=== PATIENT | male | born 1940 | race Caucasian/White ===

== ENCOUNTER 2017-09-14 05:31 | Outpatient (CLI) | payer MEDICARE, OTHER ==
[~2017-09-14] VITALS: Ht 175.3 cm; Wt 99.3 kg
[~2017-09-14 05:31] MED LIST: AMLO10TA82 PO; ASCO500T20 PO; ASP81TEC PO; CALC-787 PO; CHOL10003 PO; FISH1CAP15 PO; HYDR1TAB86 PO; LOSA50TA6 PO; SIMV20TA3 PO; TRIA1TAB3 PO
[2017-09-14] MEDS ORDERED: ASCO10006 PO (09:06)
[2017-09-14] MEDS ORDERED: ASPI-999 PO (09:06)
[2017-09-14] MEDS ORDERED: LOSA100T28 PO (09:06)
[2017-09-14] MEDS ORDERED: TRIA1CAP4 PO (09:06)
[2017-09-14] MEDS ORDERED: CALC-927 PO (09:06)
[2017-09-14] MEDS ORDERED: CHOL2000 PO (09:06)
[2017-09-14] MEDS ORDERED: FISH1CAP15 PO (09:06)
[2017-09-14] MEDS ORDERED: SIMV20TA3 PO (09:06)
[2017-09-14] MEDS ORDERED: AMLO10TA2 PO (09:06)
== END 2017-09-14 09:02 ==
LOC: PREOP 05:31
PROVIDERS: ATTEND Surgery
DX: Z01.818 Encounter for other preprocedural examination (principal); Z12.11 Encounter for screening for malignant neoplasm of colon

== ENCOUNTER 2017-09-21 08:40 | Day surgery (SDC) | payer MEDICARE, OTHER ==
[~2017-09-21] VITALS: Ht 175.3 cm; Wt 99.3 kg
[~2017-09-21 08:40] MED LIST changes: +AMLO10TA2 PO; +ASCO10006 PO; +ASPI-999 PO; +CALC-927 PO; +CHOL2000 PO; +LOSA100T28 PO; +TRIA1CAP4 PO
[2017-09-21] MEDS ORDERED: NS IV 500 ML 500 ML IV PRN (08:51)
[2017-09-21] MEDS ORDERED: LIDOCAINE JELLY 2% (XYLOCAINE) 5 ML TUBE MM PRN (09:00)
[2017-09-21 09:09] VITALS: BP 147/73
[2017-09-21] MEDS ORDERED: fentaNYL INJECTION 100 MCG/2 ML AMP ONE ×2 (09:55→10:27)
[2017-09-21] MEDS ORDERED: LIDOCAINE JELLY 2% (XYLOCAINE) 5 ML TUBE ONE (09:55)
[2017-09-21] MEDS ORDERED: MIDAZOLAM 2 MG/2 ML (VERSED) VIAL ONE ×4 (09:56)
--- NOTE | 2017-09-21 10:08 | Conscious Sedation/ASA ---
Conscious Sedation Pre-Proced Time Reviewed: 09:30 ASA Class: 2 Airway Mallampati Classification: ([place] appropriate class) I. II. III, IV Lungs Heart ASA score ASA 1: a normal healthy patient ASA 2: a patient with a mild systemic disease (mid diabetes, controlled hypertension, obesity ASA 3: a patient with a severe systemic disease that limits activity (angina , COPD, prior Myocardial infarction) ASA 4: a patient with an incapacitating disease that is a constant threat to life (CHF, renal failure) ASA 5: a moribund patient not expected to survive 24 hrs. (ruptured aneurysm) ASA 6: a declared brain patient whose organs are being harvested. For emergent operations, add the letter E after the classification Grade 2 Sedation Plan: Analgesia, Amnesia, Plan communicated to team members, Discussed options with patient/fam, Discussed risks with patient/fam Note The patient is an appropriate candidate to undergo the planned procedure, sedation, and anesthesia. The patient immediately re-assessed prior to indication. ALISHA MARTIN MD Sep 21, 2017 10:08 am
--- NOTE | 2017-09-21 10:09 | Progress Note-Pre Operative ---
Pre-Operative Progress Note H&P Reviewed The H&P was reviewed, patient examined and no changes noted. Date Seen by Provider: Sep 21, 2017 Time Seen by Provider: :30 Date H&P Reviewed: Sep 21, 2017 Time H&P Reviewed: :30 Pre-Operative Diagnosis: screening colonoscopy ALISHA MARTIN MD Sep 21, 2017 10:09 am
[2017-09-21] MEDS: MIDAZOLAM 2 MG/2 ML (VERSED) VIAL IVP PRN ×4 (10:10→10:29)
[2017-09-21] MEDS: fentaNYL INJECTION 100 MCG/2 ML AMP IVP PRN ×4 (10:11→10:28)
[2017-09-21] MEDS ORDERED: ONDANSETRON 4 MG/2 ML (SDV) Z0FRAN IV PRN (10:15)
[2017-09-21] MEDS ORDERED: HYDROcodone/APAP 5 MG/325 MG (LORTAB) TAB PO PRN (10:15)
[2017-09-21] MEDS ORDERED: ACETAMINOPHEN 325 MG TABLET/CAPLET (TYLENOL) PO PRN (10:15)
[2017-09-21] MEDS ORDERED: morphine INJ 10 MG/ML 1ML (SYR OR VIAL) IV PRN (10:15)
--- NOTE | 2017-09-21 10:48 | Progress Note-Post Operative ---
Post-Operative Progess Note Surgeon (s)/Publication Director (s) Surgeon ALISHA MARTIN MD Publication Director: none Pre-Operative Diagnosis screening colonoscopy Post-Operative Diagnosis polyp proximal rectum(4mm), mild sigmoid diverticulosis. Procedure & Operative Findings Date of Procedure 09/21/17 Procedure Performed/Findings Colonoscopy with bx. Anesthesia Type CS Estimated Blood Loss Estimated blood loss (mL): minimal Specimens/Packing Specimens Removed rectal polyp ALISHA MARTIN MD Sep 21, 2017 10:48 am
--- NOTE | 2017-09-21 10:49 | Discharge Inst-Surgical ---
D/C Lap Instructions-MAIRO Follow Up 3-10 years, will call Activity as tolerated High Fiber Diet 25g or more per day Avoid Alcohol, Caffeine, Spicy [place] and Acid foods. Drink 64 fluid oz or more of fluids per day. Symptoms to Report: Fever over 101 degree F, Nausea/Vomiting If any problems/questions: Contact your physician or go to Emergency Room ALISHA MARTIN MD Sep 21, 2017 10:49 am
[2017-09-21 11:00] VITALS: BP 114/62
[2017-09-21 11:25] VITALS: BP 100/60
[2017-09-21 11:32] VITALS: BP 100/60
--- NOTE | 2017-09-21 19:09 | OPERATIVE REPORT ---
DATE OF SERVICE: 09/21/2017 ATTENDING PRIMARY CARE PHYSICIAN: Dr. Jordan. PREOPERATIVE DIAGNOSIS: Screening colonoscopy. POSTOPERATIVE DIAGNOSIS: Small sessile polyp of the rectum approximately 4 mm in size, mild sigmoid diverticulosis. PROCEDURE: EGD with biopsy. SURGEON: Dr. Ferrell. ANESTHESIA: Conscious sedation. ESTIMATED BLOOD LOSS: Minimal. FINDINGS: No significant hemorrhoids identified. Prostate gland was palpable and appeared normal. There was a small sessile polyp of the rectum approximately 4 mm in size. There was mild sigmoid diverticulosis. The remainder of the colon was normal. DISPOSITION: The patient tolerated the procedure well. The patient is a 76-year-old male in need of a followup colonoscopy. This gentleman has had two colonoscopies in the past. He reports that his first one was done at around age 51 and a polyp was identified, biopsied and found to be benign. A second colonoscopy was done and states that that was normal. He states for the most part he is doing well, tolerating regular diet and having normal bowel movements. He does not report any red blood per rectum nor any dark tarry stools. The patient was brought to the endoscopy suite, laid in the left lateral decubitus position. After adequate IV pain and sedating medications and conscious sedation anesthesia, a digital rectal examination was performed. No significant hemorrhoids identified. Normal sphincter tone was felt and there were no palpable masses. Prostate gland was palpable and appeared normal. The endoscope was then intubated to the anus and rectum and gently insufflated. The endoscope was then advanced to the valves of [place] of the rectum and of the proximal rectum, a small sessile polyp identified approximately 4 mm in largest diameter. This was biopsied and destroyed using forceps and electrocautery with visualization of good hemostasis. The endoscope was then advanced to the sigmoid colon where very mild or early sigmoid diverticulosis identified. The endoscope was then advanced to the remainder of the descending, transverse, and ascending colon to the cecum. These segments were normal. No other lesions identified. The endoscope was then slowly withdrawn while taking a second look and suctioning of residual air with no additional findings. The patient tolerated the procedure well. We will have him continue with medical management with a high fiber diet with at least 30 grams of fiber per day as well as at least 64 fluid ounces of water daily to promote soft stools on a daily basis. We will await the biopsy results of the polyp. If this is a hyperplastic polyp or only a tubular adenoma, he may again wait 10 years for his next colonoscopy. However, there was a villous component pathologically, we will then recommend a followup in 3 years. Job ID: [id number] DocumentID: [id number] Dictated Date: 09/21/2017 10:43:51 Sizing Sprayer Date: 09/21/2017 19:09:19 Dictated By: ALISHA FERRELL MD MTDD
--- OUTSIDE RECORDS SUMMARY | 2017-09-22 18:21 | XMS REPORT | Clinical Summary ---
Author Author User, SARY Organization Formerly [facility] [place] Address Unknown Phone Unavailable Allergies, Adverse Reactions, Alerts Allergy Name Reaction Description Start Date Severity Status Provider CODEINE Gastrointestinal problems, e.g., nausea, vomiting, diarrhea Critical Active Melonie Jordan Conditions or Problems Problem Name Problem Code Onset Date Status Entry Date Provider Comment Standard Description Annotate HYPERCHOLESTEROLEMIA 272.0 Active Melonie Jordan Pure hypercholesterolemia HYPERTENSION, BENIGN ESSENTIAL, SEVERE 401.1 Active Melonie Jordan Benign essential hypertension OSTEOARTHRITIS 715.90 Active Melonie Jordan Osteoarthrosis, unspecified whether generalized or localized, involving unspecified site SHOULDER PAIN 719.41 Resolved Melonie Jordan Pain in joint involving shoulder region KNEE PAIN 719.46 Active Melonie Jordan Pain in joint involving lower leg SKIN LESION 709.9 Resolved Melonie Jordan Unspecified disorder of skin and subcutaneous tissue left ACW VACCINE AGAINST STREPTOCOCCUS PNEUMONIAE V03.82 Resolved Melonie Jordan Need for prophylactic vaccination against Streptococcus pneumoniae [pneumococcus] VACCINE AGAINST TETANUS TOXOID V03.7 Resolved Melonie Jordan Need for prophylactic vaccination with tetanus toxoid alone HYPERGLYCEMIA, MILD 790.6 Active Melonie Jordan Other abnormal blood chemistry HYPERGLYCEMIA, MILD 790.6 Resolved Melonie Jordan Other abnormal blood chemistry UNSPECIFIED VITAMIN D DEFICIENCY 268.9 Active Melonie Jordan Unspecified vitamin D deficiency BPH 600.0 Active Melonie Jordan Hypertrophy (benign) of prostate URINARY FREQUENCY 788.41 Resolved Melonie Jordan Urinary frequency ERECTILE DYSFUNCTION, 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 Melonie Jordan Impotence of organic origin HEALTH SCREENING V70.0 Resolved Melonie Jordan Routine general medical examination at a health care facility TORTICOLLIS 723.5 Resolved Melonie Jordan Torticollis, unspecified LIPOMAS, MULTIPLE 214.9 Resolved Melonie Jordan Lipoma, unspecified site Medication List Medication Instructions Start Date Stop Date Generic Name NDC Status Provider Patient Instruction COZAAR 100 MG TAB 1 PO daily LOSARTAN POTASSIUM 20283559159 Active Melonie Jordan VIAGRA 100 MG TABS 1 PO as directed SILDENAFIL CITRATE 25367149354 No Longer Active Melonie Jordan VALIUM 2 MG TAB 1 PO TID Muscle Spasm DIAZEPAM 69475844768 No Longer Active Melonie Jordan PREDNISONE 20 MG TAB 2 pills at once for 3 days then 1 pill daily for 3 days PREDNISONE 77120973738 No Longer Active Melonie Jordan VITAMIN D 1000 UNIT TABS 1 PO Daily CHOLECALCIFEROL 30611492594 Active Melonie Jordan ZOCOR 20 MG TAB 1 PO daily SIMVASTATIN 89019251974 Active Melonie Jordan NORVASC 10 MG TAB 1 PO QD AMLODIPINE BESYLATE 72240391244 Active Melonie Jordan FISH OIL 1000 MG CAPS 2 PO daily OMEGA-3 FATTY ACIDS 22760168496 Active Melonie Jordan ASPIRIN 81 MG TAB 1 PO daily ASPIRIN 57770031012 Active Melonieyoko Jordan CADUET 10-20 MG TABS 1 PO daily AMLODIPINE-ATORVASTATIN 64618706966 No Longer Active Joie Berrios ADVIL 200 MG TAB 2 PO prn IBUPROFEN 49768115797 No Longer Active Melonie Riggins Jordan VITAMIN E 100 IU CAP 1 daily VITAMIN E 03245998706 No Longer Active Melonieyoko Riggins Jordan BENICAR 20 MG TABS 1 PO QD OLMESARTAN MEDOXOMIL 62687487753 No Longer Active Melonie Vaishnavi Nikki CADUET 10/20 1 PO daily CADUET 10 No Longer Active Melonieyoko Rehmane Nikki VITAMIN C 500 MG CHEW TAB 2 PO QD ASCORBIC ACID 14028552167 Active Melonie Vaishnavi Nikki CALTRATE 600 PLUS-VIT D 600-200 MG-IU TABS 1 PO QD CALCIUM-VITAMIN D Active Melonie Vaishnavi Nikki CELEBREX 200 MG CAPS 1 PO QD CELECOXIB 98086547965 No Longer Active Melonie Vaishnavi Nikki CADUET 5/20 (NORVASC 5/LIPITOR 20) 1 PO QD CADUET 5/20 ( NORVASC 5/LIPITOR 20) No Longer Active Melonie Riggins Nikki TRIAMTERENE-HCTZ 37.5-25 MG TABS 1 po daily TRIAMTERENE-HCTZ 00418758149 Active Melonieyoko Rehmane Nikki Immunizations Vaccine Administration Date Value Standard Description Influenza vaccine given Done influenza virus vaccine, unspecified formulation Influenza vaccine given Done influenza virus vaccine, unspecified formulation Influenza vaccine given Done influenza virus vaccine, unspecified formulation Vital Signs Date Name Value Unit Range Description blood pressure, diastolic - 8462-4 80 mm[Hg] BP benavides blood pressure, systolic - 8480-6 160 mm[Hg] BP sys pulse rate E&M - 8867-4 54 /min Heart rate respiratory rate E&M - 9279-1 14 /min Resp rate temperature E&M 98.6 [degF] Body temperature weight E&M - 3141-9 220 [lb_av] Weight Measured Diagnostic Results Date Name Value Unit Range Description Clinical Lists Update: CBC,CMP,FLP,TSH,HgA1c - Chemistry Estimated Glomerular Filtration Rate (calc) >60 mL/min/1.73m2 albumin, serum 4.3 g/dL cholesterol/HDL ratio, serum, percent 2.52 anion gap, serum 6 sodium, serum 138 mmol/L triglyceride, serum, fasting 96 mg/dL bilirubin, serum, total 0.8 mg/dL alanine aminotransferase (SGPT), serum 19 U/L aspartate aminotransferase (SGOT), serum 23 U/L protein, total, serum 6.8 g/dL potassium, serum 4.4 mmol/L LDL cholesterol, serum 75 mg/dL thyroid stimulating hormone, serum 1.819 u[iU]/mL hemoglobin A1C, blood, as % of total hemoglobin 5.5 % HDL cholesterol, serum 62 mg/dL creatinine, serum 1.16 mg/dL carbon dioxide, venous blood 28 mmol/L cholesterol, serum 156 mg/dL chloride, serum 104 mmol/L calcium, serum 10.0 mg/dL urea nitrogen, blood 24 mg/dL alkaline phosphatase, serum 70 U/L glucose, plasma fasting 95 mg/dL Clinical Lists Update: CBC,CMP,FLP,TSH,HgA1c - Hematology red blood cell distribution width 13.8 % mean corpuscular volume, RBC 88.9 fL leukocyte count, blood 6.8 10*3/mm3 erythrocyte (RBC) count 4.95 10*6/mm3 platelet count 210 10*3/mm3 hemoglobin, blood 14.9 g/dL hematocrit, blood 44.0 % Lab Report: A1C HPLC - Chemistry hemoglobin A1C, blood, as % of total hemoglobin 5.5 % 4.0-5.6 Lab Report: CBC - Chemistry mean corpuscular hemoglobin concentration, rbc 33.9 g/dL 31.6- 35.5 basophils, absolute, manual 0.07 10E9/L {Cells}/uL 0.00-0.20 eosinophils, absolute, manual 0.35 10E9/L {Cells}/uL 0.00-0.45 monocytes, absolute, manual 0.63 10E9/L {Cells}/uL 0.20-1.00 lymphocytes, absolute, manual 1.88 10E9/L {Cells}/uL 1.00-4.00 polymorphonuclear neutrophils, absolute, manual 3.88 10E9/L { Cells}/uL 1.80-7.80 Lab Report: CBC - Hematology basophils as percent of blood leukocytes, automated count 1.0 % neutrophil count, CSF 57.1 % hematocrit, blood 44.0 % 38.3-51.2 platelet count 210 663-304 1231/11/05 lymphocytes as percent of blood leukocytes, manual count 27.6 % mean platelet volume 9.2 fL 9.5-12.8 monocytes as percent of blood leukocytes 9.2 % mean corpuscular hemoglobin, RBC 30.1 pg 27.6-33.8 eosinophils as percent of blood leukocytes 5.1 % mean corpuscular volume, RBC 88.9 fL 83.7-99.8 hemoglobin, blood 14.9 g/dL 12.5-17.3 Lab Report: CHEM 14 - Chemistry bilirubin, serum, total 0.8 mg/dL 0.1-1.3 protein total, urine 7.2 GM/DL 6.4-8.1 alanine aminotransferase (SGPT), serum 19 U/L 0-40 alanine aminotransferase (SGPT), serum 17 U/L 0-40 aspartate aminotransferase (SGOT), serum 23 U/L 0-40 aspartate aminotransferase (SGOT), serum 20 U/L 0-40 potassium, serum 4.4 mmol/L 3.5-5.5 potassium, serum 4.5 mmol/L 3.5-5.5 blood glucose, random 107 mg/dL 70-100 protein total, urine 6.8 GM/DL 6.4-8.1 alkaline phosphatase, serum 70 U/L 43-123 alkaline phosphatase, serum 60 U/L 43-123 albumin, serum 4.3 g/dL 3.9-4.9 albumin, serum 4.4 g/dL 3.9-4.9 calcium, serum 10.0 mg/dL 8.5-10.5 calcium, serum 9.9 mg/dL 8.5-10.5 urea nitrogen, blood 24 mg/dL 5-26 sodium, serum 138 mmol/L 676-841 7299/11/05 sodium, serum 138 mmol/L 478-380 9919/11/05 blood glucose, random 95 mg/dL 70-100 urea nitrogen, blood 22 mg/dL 5-26 chloride, blood 105 mmol/L 96-108 chloride, blood 104 mmol/L 96-108 bicarbonate, serum 27 mmol/L 18-30 bicarbonate, serum 28 mmol/L 18-30 bilirubin, serum, total 0.8 mg/dL 0.1-1.3 Lab Report: CHEM 14 - Lab CREATININE 1.16 0.50-1.70 CREATININE 1.42 0.50-1.70 Lab Report: LIPID GRP - Chemistry cholesterol, serum 156 mg/dL 370-800 6457/05/11 HDL cholesterol, serum 75 mg/dL 40-125 HDL cholesterol, serum 62 mg/dL 40-125 triglyceride, serum, random 80 mg/dL 30-150 triglyceride, serum, random 96 mg/dL 30-150 cholesterol, serum 159 mg/dL 100-200 Lab Report: TSH - Chemistry thyroid stimulating hormone, serum 1.819 u[iU]/mL 0.300-5.000 Encounters Code Encounter Date Provider Facility CPT-29306 Ofc Vst, Est Level IV 10:43:21 ORTHODONTIC TECHNICIAN ASSISTANT Melonie Jordan DO, FACP CPT-97893 Ofc Vst, Est Level III 16:32:35 CDT Melonie Jordan DO, FACP CPT-49772 Ofc Vst, Est Level III 16:29:14 CDT Melonie Jordan DO, FACP CPT-83367 Ofc Vst, Est Level III 15:20:57 CDT Melonieyoko Jordan [facility] CPT-48078 Ofc Vst, Est Level IV 10:25:21 CDT Melonie Jordan DO, FACP CPT-70960 Ofc Vst, Est Level IV 10:36:19 CDT Melonie Jordan DO, FACP CPT-52668 Ofc Vst, Est Level IV 10:36:55 CDT Melonie Jordan DO, FACP CPT-39165 Ofc Vst, Est Level IV 10:11:24 CDT Melonie Jordan DO, FACP CPT-52818 Ofc Vst, Est Level IV 12:30:42 CDT Melonie Jordan DO, FACP CPT-52341 Ofc Vst, Est Level IV 09:50:04 ORTHODONTIC TECHNICIAN ASSISTANT Melonie Jordan DO, FACP CPT-38190 Ofc Vst, Est Level IV 15:56:18 CDT Melonie Vaishnavi Jordan Melonie Kathy Nikki, DO, FACP CPT-30868 Ofc Vst, Est Level IV 10:11:12 CDT Melonie Vaishnavi [place] Melonieyoko Jordan, DO, FACP CPT-04782 Ofc Vst, Est Level IV 13:52:22 CDT Melonie Vaishnavi [place] Melonie Chavez Nikki, DO, FACP CPT-51708 Ofc Vst, Est Level IV 09:49:54 CDT Melonie Vaishnavi Nikki Melonieyoko Jordan, DO, FACP CPT-00637 Ofc Vst, Est Level IV 09:55:50 ORTHODONTIC TECHNICIAN ASSISTANT Melonieyoko Riggins Nikki Jordan, DO, FACP CPT-30770 Ofc Vst, Est Level IV 10:14:46 CDT Melonie Vaishnavi [place] Melonie Kathy Nikki, DO, FACP CPT-39650 Ofc Vst, Est Level III 09:58:45 CDT Melonie Vaishnavi [facility] [place] CPT-16726 Ofc Vst, Est Level IV 10:29:39 ORTHODONTIC TECHNICIAN ASSISTANT Melonie Jordan [facility] [place] CPT-59983 Ofc Vst, Est Level IV 11:06:57 CDT Melonie Jordan [facility] [place] CPT-44547 Ofc Vst, Est Level IV 09:51:33 ORTHODONTIC TECHNICIAN ASSISTANT Melonie Jordan [facility] [place] CPT-06270 Ofc Vst, Est Level IV 10:15:25 ORTHODONTIC TECHNICIAN ASSISTANT Melonie Jordan [facility] [place] CPT-34109 Ofc Vst, Est Level IV 10:00:20 CDT Melonie Jordan [facility] [place] CPT-64116 Ofc Vst, Est Level IV 09:17:27 CDT Melonie Vaishnavi Jordan [facility] [place] CPT-75147 Ofc Vst, Est Level IV 17:14:46 ORTHODONTIC TECHNICIAN ASSISTANT Melonie Jordan [facility] [place] CPT-70926 Ofc Vst, Est Level IV 18:27:58 ORTHODONTIC TECHNICIAN ASSISTANT Melonie Jordan [facility] [place] CPT-71182 Ofc Vst, Est Level III 18:49:34 ORTHODONTIC TECHNICIAN ASSISTANT Melonie Jordan [facility] [place] CPT-08079 Ofc Vst, New Level III 17:44:25 ORTHODONTIC TECHNICIAN ASSISTANT Melonie Jordan [facility] [place] Procedures Code Procedure Name Date Entry Date Standard Description CPT-G0439 Medicare Annual Wellness Visit 18:56:44 CDT CPT-G8445 E-Prescribing Not sent due to no medication given 16:32: 35 CDT CPT-G8445 E-Prescribing Not sent due to no medication given 10:37: 54 CDT CPT-G0439 Medicare Annual Wellness Visit 10:37:54 CDT CPT-21504 Preventive, Est, (65+) 10:36:34 CDT CPT-56594 Tetanus vaccine, adsorbed, intramuscular 10:14:46 CDT CPT-74980 Injection, Pneumovax 10:14:46 CDT CPT-G0366 Welcome to Medicare EKG 09:58:45 CDT CPT-01263 Biopsy, skin/subcut/mucous membrane; sngl lsn 09:38:45 ORTHODONTIC TECHNICIAN ASSISTANT
--- OUTSIDE RECORDS SUMMARY | 2017-09-22 18:21 | XMS REPORT | Clinical Summary ---
Author Author User, SARY Organization Formerly [facility] [place] Address Unknown Phone Unavailable Allergies, Adverse Reactions, [...] MG TAB 1 PO daily LOSARTAN POTASSIUM 42537097862 Active Melonie Jordan VIAGRA 100 MG TABS 1 PO as directed SILDENAFIL CITRATE 28081812753 No Longer Active Melonie Jordan VALIUM 2 MG TAB 1 PO TID Muscle Spasm DIAZEPAM 38266283567 No Longer Active Melonie Jordan PREDNISONE 20 MG TAB 2 pills at once for 3 days then 1 pill daily for 3 days PREDNISONE 32449850487 No Longer Active Melonie Jordan VITAMIN D 1000 UNIT TABS 1 PO Daily CHOLECALCIFEROL 63762412887 Active Melonie Jordan ZOCOR 20 MG TAB 1 PO daily SIMVASTATIN 03380869283 Active Melonie Jordan NORVASC 10 MG TAB 1 PO QD AMLODIPINE BESYLATE 61764712250 Active Melonie Jordan FISH OIL 1000 MG CAPS 2 PO daily OMEGA-3 FATTY ACIDS 04940097898 Active Melonie Jordan ASPIRIN 81 MG TAB 1 PO daily ASPIRIN 87660630051 Active Melonieyoko Jordan CADUET 10-20 MG TABS 1 PO daily AMLODIPINE-ATORVASTATIN 91233637337 No Longer Active Joie Berrios ADVIL 200 MG TAB 2 PO prn IBUPROFEN 04580876465 No Longer Active Melonie Riggins Jordan VITAMIN E 100 IU CAP 1 daily VITAMIN E 85679329923 No Longer Active Melonieyoko Riggins Jordan BENICAR 20 MG TABS 1 PO QD OLMESARTAN MEDOXOMIL 10297162954 No Longer Active Melonie Vaishnavi Nikki CADUET 10/20 1 PO daily CADUET 10 No Longer Active Melonieyoko Rehmane Nikki VITAMIN C 500 MG CHEW TAB 2 PO QD ASCORBIC ACID 19242655555 Active Melonie Vaishnavi Nikki CALTRATE 600 PLUS-VIT D 600-200 MG-IU TABS 1 PO QD CALCIUM-VITAMIN D Active Melonie Vaishnavi Nikki CELEBREX 200 MG CAPS 1 PO QD CELECOXIB 66484577907 No Longer Active Melonie Vaishnavi Nikki CADUET 5/20 (NORVASC 5/LIPITOR 20) 1 PO QD CADUET 5/20 ( NORVASC 5/LIPITOR 20) No Longer Active Melonie Riggins Nikki TRIAMTERENE-HCTZ 37.5-25 MG TABS 1 po daily TRIAMTERENE-HCTZ 80042381188 Active Melonieyoko Rehmane Nikki Immunizations Vaccine Administration [...] blood 44.0 % 38.3-51.2 platelet count 210 440-940 1084/11/05 lymphocytes as percent of blood leukocytes, manual [...] 24 mg/dL 5-26 sodium, serum 138 mmol/L 920-671 9652/11/05 sodium, serum 138 mmol/L 085-973 3871/11/05 blood glucose, random 95 mg/dL 70-100 urea nitrogen, blood 22 mg/dL 5-26 chloride, blood 105 mmol/L 96-108 chloride, blood 104 mmol/L 96-108 bicarbonate, serum 27 mmol/L 18-30 bicarbonate, serum 28 mmol/L 18-30 bilirubin, serum, total 0.8 mg/dL 0.1-1.3 Lab Report: CHEM 14 - Lab CREATININE 1.16 0.50-1.70 CREATININE 1.42 0.50-1.70 Lab Report: LIPID GRP - Chemistry cholesterol, serum 156 mg/dL 714-517 0764/05/11 HDL cholesterol, serum 75 mg/dL 40-125 HDL cholesterol, serum 62 mg/dL 40-125 triglyceride, serum, random 80 mg/dL 30-150 triglyceride, serum, random 96 mg/dL 30-150 cholesterol, serum 159 mg/dL 100-200 Lab Report: TSH - Chemistry thyroid stimulating hormone, serum 1.819 u[iU]/mL 0.300-5.000 Encounters Code Encounter Date Provider Facility CPT-20146 Ofc Vst, Est Level IV 10:43:21 DIRECTOR SALES AND MARKETING Melonie Jordan DO, FACP CPT-60178 Ofc Vst, Est Level III 16:32:35 CDT Melonie Jordan DO, FACP CPT-83737 Ofc Vst, Est Level III 16:29:14 CDT Melonie Jordan DO, FACP CPT-02867 Ofc Vst, Est Level III 15:20:57 CDT Melonieyoko Jordan [facility] CPT-43684 Ofc Vst, Est Level IV 10:25:21 CDT Melonie Jordan DO, FACP CPT-67600 Ofc Vst, Est Level IV 10:36:19 CDT Melonie Jordan DO, FACP CPT-91428 Ofc Vst, Est Level IV 10:36:55 CDT Melonie Jordan DO, FACP CPT-58695 Ofc Vst, Est Level IV 10:11:24 CDT Melonie Jordan DO, FACP CPT-26774 Ofc Vst, Est Level IV 12:30:42 CDT Melonie Jordan DO, FACP CPT-58045 Ofc Vst, Est Level IV 09:50:04 DIRECTOR SALES AND MARKETING Melonie Jordan DO, FACP CPT-83454 Ofc Vst, Est Level IV 15:56:18 CDT Melonie Vaishnavi Jordan Melonie Kathy Nikki, DO, FACP CPT-64687 Ofc Vst, Est Level IV 10:11:12 CDT Melonie Vaishnavi [place] Melonieyoko Jordan, DO, FACP CPT-81527 Ofc Vst, Est Level IV 13:52:22 CDT Melonie Vaishnavi [place] Melonie Chavez Nikki, DO, FACP CPT-12400 Ofc Vst, Est Level IV 09:49:54 CDT Melonie Vaishnavi Nikki Melonieyoko Jordan, DO, FACP CPT-60281 Ofc Vst, Est Level IV 09:55:50 DIRECTOR SALES AND MARKETING Melonieyoko Riggins Nikki Jordan, DO, FACP CPT-13016 Ofc Vst, Est Level IV 10:14:46 CDT Melonie Vaishnavi [place] Melonie Kathy Nikki, DO, FACP CPT-46973 Ofc Vst, Est Level III 09:58:45 CDT Melonie Vaishnavi Jordan [facility] [place] CPT-63774 Ofc Vst, Est Level IV 10:29:39 DIRECTOR SALES AND MARKETING Melonie Jordan [facility] [place] CPT-71724 Ofc Vst, Est Level IV 11:06:57 CDT Melonie Jordan [facility] [place] CPT-43151 Ofc Vst, Est Level IV 09:51:33 DIRECTOR SALES AND MARKETING Melonie Jordan [facility] [place] CPT-53871 Ofc Vst, Est Level IV 10:15:25 DIRECTOR SALES AND MARKETING Melonie Jordan [facility] [place] CPT-66372 Ofc Vst, Est Level IV 10:00:20 CDT Melonie Jordan [facility] [place] CPT-11099 Ofc Vst, Est Level IV 09:17:27 CDT Melonie Vaishnavi Jordan [facility] [place] CPT-57704 Ofc Vst, Est Level IV 17:14:46 DIRECTOR SALES AND MARKETING Melonie Jordan [facility] [place] CPT-23038 Ofc Vst, Est Level IV 18:27:58 DIRECTOR SALES AND MARKETING Melonie Jordan [facility] [place] CPT-43575 Ofc Vst, Est Level III 18:49:34 DIRECTOR SALES AND MARKETING Melonie Jrodan [facility] [place] CPT-03396 Ofc Vst, New Level III 17:44:25 DIRECTOR SALES AND MARKETING Melonie Jordan [facility] [place] Procedures Code Procedure Name Date Entry Date Standard Description CPT-G0439 Medicare Annual Wellness Visit 18:56:44 CDT CPT-G8445 E-Prescribing Not sent due to no medication given 16:32: 35 CDT CPT-G8445 E-Prescribing Not sent due to no medication given 10:37: 54 CDT CPT-G0439 Medicare Annual Wellness Visit 10:37:54 CDT CPT-64630 Preventive, Est, (65+) 10:36:34 CDT CPT-06248 Tetanus vaccine, adsorbed, intramuscular 10:14:46 CDT CPT-55307 Injection, Pneumovax 10:14:46 CDT CPT-G0366 Welcome to Medicare EKG 09:58:45 CDT CPT-10808 Biopsy, skin/subcut/mucous membrane; sngl lsn 09:38:45 DIRECTOR SALES AND MARKETING
--- OUTSIDE RECORDS SUMMARY | 2017-09-22 18:21 | XMS REPORT | Clinical Summary ---
Author Author User, SARY Organization [facility] [place] Address Unknown Phone Unavailable Allergies, Adverse Reactions, [...] MG TAB 1 PO daily LOSARTAN POTASSIUM 23471195607 Active Melonie Jordan VIAGRA 100 MG TABS 1 PO as directed SILDENAFIL CITRATE 67431614417 No Longer Active Melonie Jordan VALIUM 2 MG TAB 1 PO TID Muscle Spasm DIAZEPAM 34653148114 No Longer Active Melonie Jordan PREDNISONE 20 MG TAB 2 pills at once for 3 days then 1 pill daily for 3 days PREDNISONE 23821191198 No Longer Active Melonie Jordan VITAMIN D 1000 UNIT TABS 1 PO Daily CHOLECALCIFEROL 74492567906 Active Melonie Jordan ZOCOR 20 MG TAB 1 PO daily SIMVASTATIN 45401327778 Active Melonie Jordan NORVASC 10 MG TAB 1 PO QD AMLODIPINE BESYLATE 79710140238 Active Melonie Jordan FISH OIL 1000 MG CAPS 2 PO daily OMEGA-3 FATTY ACIDS 19622762677 Active Melonie Jordan ASPIRIN 81 MG TAB 1 PO daily ASPIRIN 53035356044 Active Melonieyoko Jordan CADUET 10-20 MG TABS 1 PO daily AMLODIPINE-ATORVASTATIN 56779433389 No Longer Active Joie Berrios ADVIL 200 MG TAB 2 PO prn IBUPROFEN 14715621917 No Longer Active Melonie Riggins Jordan VITAMIN E 100 IU CAP 1 daily VITAMIN E 31954064662 No Longer Active Melonieyoko Riggins Jordan BENICAR 20 MG TABS 1 PO QD OLMESARTAN MEDOXOMIL 75612169208 No Longer Active Melonie Vaishnavi Nikki CADUET 10/20 1 PO daily CADUET 10 No Longer Active Melonieyoko Rehmane Nikki VITAMIN C 500 MG CHEW TAB 2 PO QD ASCORBIC ACID 47515696078 Active Melonie Vaishnavi Nikki CALTRATE 600 PLUS-VIT D 600-200 MG-IU TABS 1 PO QD CALCIUM-VITAMIN D Active Melonie Vaishnavi Nikki CELEBREX 200 MG CAPS 1 PO QD CELECOXIB 82176380621 No Longer Active Melonie Vaishnavi Nikki CADUET 5/20 (NORVASC 5/LIPITOR 20) 1 PO QD CADUET 5/20 ( NORVASC 5/LIPITOR 20) No Longer Active Melonie Riggins Nikki TRIAMTERENE-HCTZ 37.5-25 MG TABS 1 po daily TRIAMTERENE-HCTZ 52082718383 Active Melonieyoko Rehmane Nikki Immunizations Vaccine Administration [...] Description Clinical Lists Update: CBC,CMP,FLP,TSH,HgA1c - Chemistry chloride, serum 104 mmol/L sodium, serum 138 mmol/L cholesterol, serum 156 mg/dL carbon dioxide, venous blood 28 mmol/L creatinine, serum 1.16 mg/dL Estimated Glomerular Filtration Rate (calc) >60 mL/min/1.73m2 cholesterol/HDL ratio, serum, percent 2.52 alanine aminotransferase (SGPT), serum 19 U/L aspartate aminotransferase (SGOT), serum 23 U/L protein, total, serum 6.8 g/dL potassium, serum 4.4 mmol/L thyroid stimulating hormone, serum 1.819 u[iU]/mL triglyceride, serum, fasting 96 mg/dL calcium, serum 10.0 mg/dL urea nitrogen, blood 24 mg/dL bilirubin, serum, total 0.8 mg/dL anion gap, serum 6 alkaline phosphatase, serum 70 U/L albumin, serum 4.3 g/dL LDL cholesterol, serum 75 mg/dL hemoglobin A1C, blood, as % of total hemoglobin 5.5 % HDL cholesterol, serum 62 mg/dL glucose, plasma fasting 95 mg/dL Clinical Lists Update: CBC,CMP,FLP,TSH,HgA1c - Hematology red blood cell distribution width 13.8 % platelet count 210 10*3/mm3 hemoglobin, blood 14.9 g/dL erythrocyte (RBC) count 4.95 10*6/mm3 leukocyte count, blood 6.8 10*3/mm3 mean corpuscular volume, RBC 88.9 fL hematocrit, blood 44.0 % Lab Report: A1C HPLC - Chemistry hemoglobin A1C, blood, as % of total hemoglobin 5.5 % 4.0-5.6 Lab Report: CBC - Chemistry mean corpuscular hemoglobin concentration, rbc 33.9 g/dL 31.6- 35.5 basophils, absolute, manual 0.07 10E9/L {Cells}/uL 0.00-0.20 monocytes, absolute, manual 0.63 10E9/L {Cells}/uL 0.20-1.00 lymphocytes, absolute, manual 1.88 10E9/L {Cells}/uL 1.00-4.00 polymorphonuclear neutrophils, absolute, manual 3.88 10E9/L { Cells}/uL 1.80-7.80 eosinophils, absolute, manual 0.35 10E9/L {Cells}/uL 0.00-0.45 Lab Report: CBC - Hematology mean corpuscular volume, RBC 88.9 fL 83.7-99.8 mean corpuscular hemoglobin, RBC 30.1 pg 27.6-33.8 lymphocytes as percent of blood leukocytes, manual count 27.6 % hemoglobin, blood 14.9 g/dL 12.5-17.3 mean platelet volume 9.2 fL 9.5-12.8 neutrophil count, CSF 57.1 % hematocrit, blood 44.0 % 38.3-51.2 monocytes as percent of blood leukocytes 9.2 % basophils as percent of blood leukocytes, automated count 1.0 % platelet count 210 764-394 0657/11/05 eosinophils as percent of blood leukocytes 5.1 % Lab Report: CHEM 14 - Chemistry chloride, blood 104 mmol/L 96-108 chloride, blood 105 mmol/L 96-108 bicarbonate, serum 28 mmol/L 18-30 bicarbonate, serum 27 mmol/L 18-30 albumin, serum 4.3 g/dL 3.9-4.9 albumin, serum 4.4 g/dL 3.9-4.9 alkaline phosphatase, serum 70 U/L 43-123 alkaline phosphatase, serum 60 U/L 43-123 blood glucose, random 95 mg/dL 70-100 blood glucose, random 107 mg/dL 70-100 bilirubin, serum, total 0.8 mg/dL 0.1-1.3 bilirubin, serum, total 0.8 mg/dL 0.1-1.3 urea nitrogen, blood 24 mg/dL 5- urea nitrogen, blood 22 mg/dL 5- calcium, serum 10.0 mg/dL 8.5-10.5 calcium, serum 9.9 mg/dL 8.5-10.5 protein total, urine 6.8 GM/DL 6.4-8.1 protein total, urine 7.2 GM/DL 6.4-8.1 potassium, serum 4.4 mmol/L 3.5-5.5 potassium, serum 4.5 mmol/L 3.5-5.5 aspartate aminotransferase (SGOT), serum 23 U/L 0-40 aspartate aminotransferase (SGOT), serum 20 U/L 0-40 alanine aminotransferase (SGPT), serum 19 U/L 0-40 alanine aminotransferase (SGPT), serum 17 U/L 0-40 sodium, serum 138 mmol/L 063-903 8928/05/11 sodium, serum 138 mmol/L 135-145 Lab Report: CHEM 14 - Lab CREATININE 1.42 0.50-1.70 CREATININE 1.16 0.50-1.70 Lab Report: LIPID GRP - Chemistry cholesterol, serum 159 mg/dL [phone]/11/05 cholesterol, serum 156 mg/dL 372-224 9191/11/05 HDL cholesterol, serum 62 mg/dL 40-125 HDL cholesterol, serum 75 mg/dL 40-125 triglyceride, serum, random 96 mg/dL 30-150 triglyceride, serum, random 80 mg/dL 30-150 Lab Report: TSH - Chemistry thyroid stimulating hormone, serum 1.819 u[iU]/mL 0.300-5.000 Encounters Code Encounter Date Provider Facility CPT-76475 Ofc Vst, Est Level IV 10:43:21 PLAY WRITER Melonie Jordan DO, FACP CPT-53455 Ofc Vst, Est Level III 16:32:35 CDT Melonie Jordan DO, FACP CPT-92757 Ofc Vst, Est Level III 16:29:14 CDT Melonie Jordan DO, FACP CPT-88614 Ofc Vst, Est Level III 15:20:57 CDT Melonieyoko Jordan [facility] CPT-67483 Ofc Vst, Est Level IV 10:25:21 CDT Melonie Jordan DO, FACP CPT-47353 Ofc Vst, Est Level IV 10:36:19 CDT Melonie Jordan DO, FACP CPT-54471 Ofc Vst, Est Level IV 10:36:55 CDT Melonie Jordan DO, FACP CPT-34773 Ofc Vst, Est Level IV 10:11:24 CDT Melonie Jordan DO, FACP CPT-69493 Ofc Vst, Est Level IV 12:30:42 CDT Melonie Jordan DO, FACP CPT-13225 Ofc Vst, Est Level IV 09:50:04 PLAY WRITER Melonie Jordan DO, FACP CPT-39879 Ofc Vst, Est Level IV 15:56:18 CDT Melonie Vaishnavi Jordan Melonie Kathy Nikki, DO, FACP CPT-54726 Ofc Vst, Est Level IV 10:11:12 CDT Melonie Vaishnavi [place] Melonieyoko Jordan, DO, FACP CPT-58485 Ofc Vst, Est Level IV 13:52:22 CDT Melonie Vaishnavi [place] Melonie Chavez Nikki, DO, FACP CPT-42985 Ofc Vst, Est Level IV 09:49:54 CDT Melonie Vaishnavi Nikki Melonieyoko Jordan, DO, FACP CPT-60582 Ofc Vst, Est Level IV 09:55:50 PLAY WRITER Melonieyoko Riggins Nikki Jordan, DO, FACP CPT-63970 Ofc Vst, Est Level IV 10:14:46 CDT Melonie Vaishnavi [place] Melonie Kathy Nikki, DO, FACP CPT-04450 Ofc Vst, Est Level III 09:58:45 CDT Melonie Vaishnavi Jordan [facility] [place] CPT-79530 Ofc Vst, Est Level IV 10:29:39 PLAY WRITER Melonie Jordan [facility] [place] CPT-95581 Ofc Vst, Est Level IV 11:06:57 CDT Melonie Jordan [facility] [place] CPT-72114 Ofc Vst, Est Level IV 09:51:33 PLAY WRITER Melonie Jordan [facility] [place] CPT-22030 Ofc Vst, Est Level IV 10:15:25 PLAY WRITER Melonie Jordan [facility] [place] CPT-46271 Ofc Vst, Est Level IV 10:00:20 CDT Melonie Jordan [facility] [place] CPT-83132 Ofc Vst, Est Level IV 09:17:27 CDT Melonie Vaishnavi [facility] [place] CPT-95683 Ofc Vst, Est Level IV 17:14:46 PLAY WRITER Melonie Jordan [facility] [place] CPT-37105 Ofc Vst, Est Level IV 18:27:58 PLAY WRITER Melonie Jordan [facility] [place] CPT-68298 Ofc Vst, Est Level III 18:49:34 PLAY WRITER Melonie Jordan [facility] [place] CPT-05145 Ofc Vst, New Level III 17:44:25 PLAY WRITER Melonie Jordan [facility] [place] Procedures Code Procedure Name Date Entry Date Standard Description CPT-G0439 Medicare Annual Wellness Visit 18:56:44 CDT CPT-G8445 E-Prescribing Not sent due to no medication given 16:32: 35 CDT CPT-G8445 E-Prescribing Not sent due to no medication given 10:37: 54 CDT CPT-G0439 Medicare Annual Wellness Visit 10:37:54 CDT CPT-42997 Preventive, Est, (65+) 10:36:34 CDT CPT-94718 Tetanus vaccine, adsorbed, intramuscular 10:14:46 CDT CPT-52720 Injection, Pneumovax 10:14:46 CDT CPT-G0366 Welcome to Medicare EKG 09:58:45 CDT CPT-78036 Biopsy, skin/subcut/mucous membrane; sngl lsn 09:38:45 PLAY WRITER
--- OUTSIDE RECORDS SUMMARY | 2017-09-22 18:23 | XMS REPORT | Clinical Summary ---
Author Author User, SARY Organization [facility] [place] Address Unknown Phone Unavailable Allergies, Adverse Reactions, Alerts Allergy Name Reaction Description Start Date Severity Status Provider CODEINE Gastrointestinal problems, e.g., nausea, vomiting, diarrhea Critical Active Meloine Jordan Conditions or Problems Problem Name Problem [...] MG TAB 1 PO daily LOSARTAN POTASSIUM 88514082136 Active Melonie Jordan VIAGRA 100 MG TABS 1 PO as directed SILDENAFIL CITRATE 57118698775 No Longer Active Melonie Joradn VALIUM 2 MG TAB 1 PO TID Muscle Spasm DIAZEPAM 45664243346 No Longer Active Melonie Jordan PREDNISONE 20 MG TAB 2 pills at once for 3 days then 1 pill daily for 3 days PREDNISONE 61898809352 No Longer Active Melonie Jordan VITAMIN D 1000 UNIT TABS 1 PO Daily CHOLECALCIFEROL 10453822075 Active Melonie Jordan ZOCOR 20 MG TAB 1 PO daily SIMVASTATIN 09895952372 Active Melonie Jordan NORVASC 10 MG TAB 1 PO QD AMLODIPINE BESYLATE 69053394697 Active Melonie Jordan FISH OIL 1000 MG CAPS 2 PO daily OMEGA-3 FATTY ACIDS 13877152750 Active Melonie Jordan ASPIRIN 81 MG TAB 1 PO daily ASPIRIN 72234116299 Active Melonieyoko Jordan CADUET 10-20 MG TABS 1 PO daily AMLODIPINE-ATORVASTATIN 43460802790 No Longer Active Joie Berrios ADVIL 200 MG TAB 2 PO prn IBUPROFEN 59030863218 No Longer Active Melonie Riggins Jordan VITAMIN E 100 IU CAP 1 daily VITAMIN E 10089864772 No Longer Active Melonieyoko Riggins Jordan BENICAR 20 MG TABS 1 PO QD OLMESARTAN MEDOXOMIL 91442604911 No Longer Active Melonie Vaishnavi Nikki CADUET 10/20 1 PO daily CADUET 10 No Longer Active Melonieyoko Rehmane Nikki VITAMIN C 500 MG CHEW TAB 2 PO QD ASCORBIC ACID 94514541812 Active Melonie Vaishnavi Nikki CALTRATE 600 PLUS-VIT D 600-200 MG-IU TABS 1 PO QD CALCIUM-VITAMIN D Active Melonie Vaishnavi Nikki CELEBREX 200 MG CAPS 1 PO QD CELECOXIB 20560463188 No Longer Active Melonie Vaishnavi Nikki CADUET 5/20 (NORVASC 5/LIPITOR 20) 1 PO QD CADUET 5/20 ( NORVASC 5/LIPITOR 20) No Longer Active Melonie Riggins Nikki TRIAMTERENE-HCTZ 37.5-25 MG TABS 1 po daily TRIAMTERENE-HCTZ 36219754922 Active Melonieyoko Rehmane Nikki Immunizations Vaccine Administration [...] Estimated Glomerular Filtration Rate (calc) >60 mL/min/1.73m2 glucose, plasma fasting 95 mg/dL cholesterol/HDL ratio, serum, percent 2.52 alanine aminotransferase (SGPT), serum 19 U/L aspartate aminotransferase (SGOT), serum 23 U/L protein, total, serum 6.8 g/dL potassium, serum 4.4 mmol/L thyroid stimulating hormone, serum 1.819 u[iU]/mL triglyceride, serum, fasting 96 mg/dL HDL cholesterol, serum 62 mg/dL hemoglobin A1C, blood, as % of total hemoglobin 5.5 % LDL cholesterol, serum 75 mg/dL albumin, serum 4.3 g/dL alkaline phosphatase, serum 70 U/L anion gap, serum 6 bilirubin, serum, total 0.8 mg/dL urea nitrogen, blood 24 mg/dL calcium, serum 10.0 mg/dL Clinical Lists Update: CBC,CMP,FLP,TSH,HgA1c - Hematology mean corpuscular volume, RBC 88.9 fL platelet count 210 10*3/mm3 red blood cell distribution width 13.8 % erythrocyte (RBC) count 4.95 10*6/mm3 hemoglobin, blood 14.9 g/dL leukocyte count, blood 6.8 10*3/mm3 hematocrit, blood 44.0 % Clinical Lists Update: CMP,FLP - Chemistry chloride, serum 105 mmol/L cholesterol/HDL ratio, serum, percent 2.12 cholesterol, serum 159 mg/dL carbon dioxide, venous blood 27 mmol/L creatinine, serum 1.42 mg/dL Estimated Glomerular Filtration Rate (calc) 59.0 mL/min/1.73m2 glucose, plasma fasting 107 mg/dL HDL cholesterol, serum 75 mg/dL LDL cholesterol, serum 68 mg/dL albumin, serum 4.4 g/dL alkaline phosphatase, serum 60 U/L anion gap, serum 8 bilirubin, serum, total 0.8 mg/dL urea nitrogen, blood 22 mg/dL calcium, serum 9.9 mg/dL triglyceride, serum, fasting 80 mg/dL potassium, serum 4.5 mmol/L protein, total, serum 7.2 g/dL aspartate aminotransferase (SGOT), serum 20 U/L alanine aminotransferase (SGPT), serum 17 U/L sodium, serum 138 mmol/L Lab Report: A1C HPLC - Chemistry hemoglobin A1C, blood, as % of total hemoglobin 5.5 % 4.0-5.6 Lab Report: CBC - Chemistry mean corpuscular hemoglobin concentration, rbc 33.9 g/dL 31.6- 35.5 lymphocytes, absolute, manual 1.88 10E9/L {Cells}/uL 1.00-4.00 eosinophils, absolute, manual 0.35 10E9/L {Cells}/uL 0.00-0.45 basophils, absolute, manual 0.07 10E9/L {Cells}/uL 0.00-0.20 polymorphonuclear neutrophils, absolute, manual 3.88 10E9/L { Cells}/uL 1.80-7.80 monocytes, absolute, manual 0.63 10E9/L {Cells}/uL 0.20-1.00 Lab Report: CBC - Hematology platelet count 210 021-365 8665/11/05 basophils as percent of blood leukocytes, automated count 1.0 % eosinophils as percent of blood leukocytes 5.1 % hematocrit, blood 44.0 % 38.3-51.2 mean platelet volume 9.2 fL 9.5-12.8 monocytes as percent of blood leukocytes 9.2 % hemoglobin, blood 14.9 g/dL 12.5-17.3 lymphocytes as percent of blood leukocytes, manual count 27.6 % mean corpuscular hemoglobin, RBC 30.1 pg 27.6-33.8 neutrophil count, CSF 57.1 % mean corpuscular volume, RBC 88.9 fL 83.7-99.8 Lab Report: CHEM 14 - Chemistry calcium, serum 9.9 mg/dL 8.5-10.5 calcium, serum 10.0 mg/dL 8.5-10.5 urea nitrogen, blood 22 mg/dL 5-26 urea nitrogen, blood 24 mg/dL 5-26 bilirubin, serum, total 0.8 mg/dL 0.1-1.3 bilirubin, serum, total 0.8 mg/dL 0.1-1.3 blood glucose, random 107 mg/dL 70-100 blood glucose, random 95 mg/dL 70-100 alkaline phosphatase, serum 60 U/L 43-123 alkaline phosphatase, serum 70 U/L 43-123 albumin, serum 4.4 g/dL 3.9-4.9 albumin, serum 4.3 g/dL 3.9-4.9 bicarbonate, serum 27 mmol/L 18-30 bicarbonate, serum 28 mmol/L 18- sodium, serum 138 mmol/L 866-474 3502/11/05 chloride, blood 104 mmol/L 96-108 chloride, blood 105 mmol/L 96-108 sodium, serum 138 mmol/L 850-085 9761/05/11 alanine aminotransferase (SGPT), serum 17 U/L 0-40 alanine aminotransferase (SGPT), serum 19 U/L 0-40 aspartate aminotransferase (SGOT), serum 20 U/L 0-40 aspartate aminotransferase (SGOT), serum 23 U/L 0-40 potassium, serum 4.5 mmol/L 3.5-5.5 potassium, serum 4.4 mmol/L 3.5-5.5 protein total, urine 7.2 GM/DL 6.4-8.1 protein total, urine 6.8 GM/DL 6.4-8.1 Lab Report: CHEM 14 - Lab CREATININE 1.16 0.50-1.70 CREATININE 1.42 0.50-1.70 Lab Report: LIPID GRP - Chemistry triglyceride, serum, random 96 mg/dL 30-150 triglyceride, serum, random 80 mg/dL 30-150 HDL cholesterol, serum 75 mg/dL 40-125 cholesterol, serum 156 mg/dL 255-717 6560/05/11 cholesterol, serum 159 mg/dL 051-334 6763/11/05 HDL cholesterol, serum 62 mg/dL 40-125 Lab Report: TSH - Chemistry thyroid stimulating hormone, serum 1.819 u[iU]/mL 0.300-5.000 Encounters Code Encounter Date Provider Facility CPT-35826 Ofc Vst, Est Level IV 10:43:21 INDUSTRIAL PRODUCTION MANAGER Melonie Jordan DO, FACRicardo CPT-70388 Ofc Vst, Est Level III 16:32:35 CDT Melonie Jordan DO, FACRicardo CPT-89800 Ofc Vst, Est Level III 16:29:14 CDT Melonieyoko Chavez Nikki, DO, FACP CPT-45417 Ofc Vst, Est Level III 15:20:57 CDT Melonie Vaishnavi [facility] CPT-13048 Ofc Vst, Est Level IV 10:25:21 CDT Melonie Vaishnavi Chavez Nikki, DO, FACP CPT-01063 Ofc Vst, Est Level IV 10:36:19 CDT Melonie Vaishnavi Chavez Nikki, DO, FACP CPT-71001 Ofc Vst, Est Level IV 10:36:55 CDT Melonie Vaishnavi Chavez Nikki, DO, FACP CPT-76939 Ofc Vst, Est Level IV 10:11:24 CDT Melonie Vaishnavi Chavez Nikki, DO, FACP CPT-49822 Ofc Vst, Est Level IV 12:30:42 CDT Melonieyoko Chavez Nikki, DO, FACP CPT-79954 Ofc Vst, Est Level IV 09:50:04 INDUSTRIAL PRODUCTION MANAGER Melonie Chavez Nikki, DO, FACP CPT-45631 Ofc Vst, Est Level IV 15:56:18 CDT Melonieyoko Chavez Nikki, DO, FACP CPT-25087 Ofc Vst, Est Level IV 10:11:12 CDT Melonie Vaishnavi Chavez Nikki, DO, FACP CPT-78500 Ofc Vst, Est Level IV 13:52:22 CDT Melonie Vaishnavi Chavez Jordan, DO, FACP CPT-84597 Ofc Vst, Est Level IV 09:49:54 CDT Melonie Vaishnavi Chavez Nikki, DO, FACP CPT-79424 Ofc Vst, Est Level IV 09:55:50 INDUSTRIAL PRODUCTION MANAGER Melonieyoko Jordan DO, FACP CPT-92214 Ofc Vst, Est Level IV 10:14:46 CDT Melonieyoko Jordan DO, FACP CPT-08997 Ofc Vst, Est Level III 09:58:[address] [facility] [place] CPT-68662 Ofc Vst, Est Level IV 10:29:39 INDUSTRIAL PRODUCTION MANAGER Melonie Jordan [facility] [place] CPT-47183 Ofc Vst, Est Level IV 11:06:[address] [facility] [place] CPT-99815 Ofc Vst, Est Level IV 09:51:33 INDUSTRIAL PRODUCTION MANAGER Melonie Jordan [facility] [place] CPT-52313 Ofc Vst, Est Level IV 10:15:25 INDUSTRIAL PRODUCTION MANAGER Melonie Jordan [facility] [place] CPT-76577 Ofc Vst, Est Level IV 10:00:[address] [facility] [place] CPT-42309 Ofc Vst, Est Level IV 09:17:[address] [facility] [place] CPT-76276 Ofc Vst, Est Level IV 17:14:46 INDUSTRIAL PRODUCTION MANAGER Melonie Jordan [facility] [place] CPT-04986 Ofc Vst, Est Level IV 18:27:58 INDUSTRIAL PRODUCTION MANAGER Melonie Jordan [facility] [place] CPT-10492 Ofc Vst, Est Level III 18:49:34 INDUSTRIAL PRODUCTION MANAGER Melonie Jordan [facility] [place] CPT-43604 Ofc Vst, New Level III 17:44:25 INDUSTRIAL PRODUCTION MANAGER Meloine Jordan [facility] [place] Procedures Code Procedure Name Date Entry Date Standard Description CPT-G0439 Medicare Annual Wellness Visit 18:56:44 CDT CPT-G8445 E-Prescribing Not sent due to no medication given 16:32: 35 CDT CPT-G8445 E-Prescribing Not sent due to no medication given 10:37: 54 CDT CPT-G0439 Medicare Annual Wellness Visit 10:37:54 CDT CPT-29907 Preventive, Est, (65+) 10:36:34 CDT CPT-75826 Tetanus vaccine, adsorbed, intramuscular 10:14:46 CDT CPT-24394 Injection, Pneumovax 10:14:46 CDT CPT-G0366 Welcome to Medicare EKG 09:58:45 CDT CPT-83866 Biopsy, skin/subcut/mucous membrane; sngl lsn 09:38:45 INDUSTRIAL PRODUCTION MANAGER
--- OUTSIDE RECORDS SUMMARY | 2017-09-22 18:24 | XMS REPORT | Clinical Summary ---
Author Author User, SARY Organization [facility] Address Unknown Phone Unavailable Allergies, Adverse Reactions, [...] toxoid alone HYPERGLYCEMIA, MILD 790.6 Active Melonie Jodran Other abnormal blood chemistry HYPERGLYCEMIA, MILD 790.6 [...] MG TAB 1 PO daily LOSARTAN POTASSIUM 18736473852 Active Melonie Jordan VIAGRA 100 MG TABS 1 PO as directed SILDENAFIL CITRATE 54981299437 No Longer Active Melonie Jordan VALIUM 2 MG TAB 1 PO TID Muscle Spasm DIAZEPAM 04638826937 No Longer Active Melonie Jordan PREDNISONE 20 MG TAB 2 pills at once for 3 days then 1 pill daily for 3 days PREDNISONE 58955061446 No Longer Active Melonie Jordan VITAMIN D 1000 UNIT TABS 1 PO Daily CHOLECALCIFEROL 99969207787 Active Melonie Jordan ZOCOR 20 MG TAB 1 PO daily SIMVASTATIN 64244335435 Active Melonie Jordan NORVASC 10 MG TAB 1 PO QD AMLODIPINE BESYLATE 18361182929 Active Melonie Jordan FISH OIL 1000 MG CAPS 2 PO daily OMEGA-3 FATTY ACIDS 16595574300 Active Melonie Jordan ASPIRIN 81 MG TAB 1 PO daily ASPIRIN 65437658691 Active Melonieyoko Jordan CADUET 10-20 MG TABS 1 PO daily AMLODIPINE-ATORVASTATIN 75801649665 No Longer Active Joie Berrios ADVIL 200 MG TAB 2 PO prn IBUPROFEN 51908220443 No Longer Active Melonieyoko Riggins Jordan VITAMIN E 100 IU CAP 1 daily VITAMIN E 11941472097 No Longer Active Melonie Vaishnavi Jordan BENICAR 20 MG TABS 1 PO QD OLMESARTAN MEDOXOMIL 21661234028 No Longer Active Melonie Vaishnavi Nikki CADUET 10/20 1 PO daily CADUET 10 No Longer Active Melonie Vaishnavi Nikki VITAMIN C 500 MG CHEW TAB 2 PO QD ASCORBIC ACID 04778528466 Active Melonie Vaishnavi Nikki CALTRATE 600 PLUS-VIT D 600-200 MG-IU TABS 1 PO QD CALCIUM-VITAMIN D Active Melonie Vaishnavi Nikki CELEBREX 200 MG CAPS 1 PO QD CELECOXIB 19134282810 No Longer Active Melonie Vaishnavi Nikki CADUET 5/20 (NORVASC 5/LIPITOR 20) 1 PO QD CADUET 5/20 ( NORVASC 5/LIPITOR 20) No Longer Active Melonie Riggins Nikki TRIAMTERENE-HCTZ 37.5-25 MG TABS 1 po daily TRIAMTERENE-HCTZ 15692252654 Active Melonieyoko Rehmane Nikki Immunizations Vaccine Administration Date Value Standard Description Influenza vaccine given Done influenza virus vaccine, unspecified formulation Influenza vaccine given Done influenza virus vaccine, unspecified formulation Influenza vaccine given Done influenza virus vaccine, unspecified formulation Vital Signs Date Name Value Unit Range Description blood pressure, diastolic - 8462-4 70 mm[Hg] BP benavides blood pressure, systolic - 8480-6 148 mm[Hg] BP sys height E&M - 8302-2 74 [in_us] Bdy height pulse rate E&M - 8867-4 74 /min Heart rate respiratory rate E&M - 9279-1 14 /min Resp rate blood pressure, diastolic - 8462-4 80 mm[Hg] [...] Report: CBC - Hematology platelet count [phone] 1353/11/05 basophils as percent of blood leukocytes, automated [...] mg/dL 8.5-10.5 urea nitrogen, blood 22 mg/dL 5- urea nitrogen, blood 24 mg/dL 5- bilirubin, serum, total 0.8 mg/dL 0.1-1.3 bilirubin, serum, total 0.8 mg/dL 0.1-1.3 blood glucose, random 107 mg/dL 70-100 blood glucose, random 95 mg/dL 70-100 alkaline phosphatase, serum 60 U/L 43-123 alkaline phosphatase, serum 70 U/L 43-123 albumin, serum 4.4 g/dL 3.9-4.9 albumin, serum 4.3 g/dL 3.9-4.9 bicarbonate, serum 27 mmol/L 18-30 bicarbonate, serum 28 mmol/L 18-30 sodium, serum 138 mmol/L 186-425 1288/11/05 chloride, blood 104 mmol/L 96-108 chloride, blood 105 mmol/L 96-108 sodium, serum 138 mmol/L 508-762 8877/05/11 alanine aminotransferase (SGPT), serum 17 U/L 0-40 [...] 75 mg/dL 40-125 cholesterol, serum 156 mg/dL 707-501 5977/05/11 cholesterol, serum 159 mg/dL 544-453 5483/11/05 HDL cholesterol, serum 62 mg/dL 40-125 Lab Report: TSH - Chemistry thyroid stimulating hormone, serum 1.819 u[iU]/mL 0.300-5.000 Encounters Code Encounter Date Provider Facility CPT-23227 Ofc Vst, Est Level IV 10:43:21 ACCOUNT INSTALLATION SPECIALIST Melonie Chavez Nikki, DO, FACP CPT-60053 Ofc Vst, Est Level III 16:32:35 CDT Melonie Vaishnavi Khani Kathy Nikki DO, FACP CPT-11158 Ofc Vst, Est Level III 16:29:14 CDT Melonie Vaishnavi Chavez Nikki DO, FACP CPT-42558 Ofc Vst, Est Level III 15:20:57 CDT Melonie Vaishnavi Jordan [facility] CPT-85406 Ofc Vst, Est Level IV 10:25:21 CDT Melonieyoko Khani Kathy Nikki DO, FACP CPT-71743 Ofc Vst, Est Level IV 10:36:19 CDT Melonieyoko Khani Kathy Nikki, DO, FACP CPT-48730 Ofc Vst, Est Level IV 10:36:55 CDT Melonieyoko Chinchillaner Melonieyoko Jordan, DO, FACP CPT-19886 Ofc Vst, Est Level IV 10:11:24 CDT Melonieyoko Chinchillasheila Jordan, DO, FACP CPT-22369 Ofc Vst, Est Level IV 12:30:42 CDT Melonieyoko [place]aner Melonie Kathy Nikki, DO, FACP CPT-18283 Ofc Vst, Est Level IV 09:50:04 ACCOUNT INSTALLATION SPECIALIST Melonie Riggins Nikki Jordan, DO, FACP CPT-75059 Ofc Vst, Est Level IV 15:56:18 CDT Melonie Vaishnavi Nikki Jordan, DO, FACP CPT-59733 Ofc Vst, Est Level IV 10:11:12 CDT Melonie Vaishnavi Nikki Jordan, DO, FACP CPT-93972 Ofc Vst, Est Level IV 13:52:22 CDT Melonie Vaishnavi Nikki Jordan, DO, FACP CPT-61828 Ofc Vst, Est Level IV 09:49:54 CDT Melonie Vaishnavi Jordan, DO, FACP CPT-03160 Ofc Vst, Est Level IV 09:55:50 ACCOUNT INSTALLATION SPECIALIST Melonie Vaishnavi Nikki Jordan, DO, FACP CPT-70670 Ofc Vst, Est Level IV 10:14:46 CDT Melonie Vaishnavi Nikki Khani Kathy Jordan, DO, FACP CPT-04004 Ofc Vst, Est Level III 09:58:45 CDT Melonie Jordan [facility] CPT-90904 Ofc Vst, Est Level IV 10:29:39 ACCOUNT INSTALLATION SPECIALIST Melonie Jordan [facility] CPT-01109 Ofc Vst, Est Level IV 11:06:57 CDT Melonie Vaishnavi Jordan [facility] CPT-86847 Ofc Vst, Est Level IV 09:51:33 ACCOUNT INSTALLATION SPECIALIST Melonie Jordan [facility] CPT-31857 Ofc Vst, Est Level IV 10:15:25 ACCOUNT INSTALLATION SPECIALIST Melonie Jordan [facility] CPT-48062 Ofc Vst, Est Level IV 10:00:20 CDT Melonie Jordan [facility] CPT-48358 Ofc Vst, Est Level IV 09:17:27 CDT Melonie Jordan [facility] CPT-46269 Ofc Vst, Est Level IV 17:14:46 ACCOUNT INSTALLATION SPECIALIST Melonie Jordan [facility] CPT-56267 Ofc Vst, Est Level IV 18:27:58 ACCOUNT INSTALLATION SPECIALIST Melonie Jordan [facility] CPT-74860 Ofc Vst, Est Level III 18:49:34 ACCOUNT INSTALLATION SPECIALIST Melonie Jordan [facility] CPT-33323 Ofc Vst, New Level III 17:44:25 ACCOUNT INSTALLATION SPECIALIST Melonie Jordan [facility] Procedures Code Procedure Name Date Entry Date Standard Description CPT-G0439 Medicare Annual Wellness Visit 14:13:26 CDT CPT-G0439 Medicare Annual Wellness Visit 18:56:44 CDT CPT-G8445 E-Prescribing Not sent due to no medication given 16:32: 35 CDT CPT-G8445 E-Prescribing Not sent due to no medication given 10:37: 54 CDT CPT-G0439 Medicare Annual Wellness Visit 10:37:54 CDT CPT-26589 Preventive, Est, (65+) 10:36:34 CDT CPT-72766 Tetanus vaccine, adsorbed, intramuscular 10:14:46 CDT CPT-53813 Injection, Pneumovax 10:14:46 CDT CPT-G0366 Welcome to Medicare EKG 09:58:45 CDT CPT-83769 Biopsy, skin/subcut/mucous membrane; sngl lsn 09:38:45 ACCOUNT INSTALLATION SPECIALIST
--- OUTSIDE RECORDS SUMMARY | 2017-09-22 18:25 | XMS REPORT | Continuity of Care Document ---
Author Author [facility] Organization [facility] Address Unknown Phone Unavailable Allergies Active Description Code Type Severity Reaction Onset Reported/Identified Relationship to Patient Clinical Status Yes codeine [id number] Drug Allergy Unknown N/A 02/22/2013 Yes codeine [id number] Drug Allergy Mild HIVES 09/14/2017 Medications There is no data. Problems Date Dx Coded Attending Type Code Diagnosis Diagnosed By 02/22/2013 ALISHA MARTIN MD Ot 214.1 LIPOMA SKIN NEC 02/22/2013 ALISHA MARTIN MD Ot 272.0 PURE HYPERCHOLESTEROLEM 02/22/2013 ALISHA MARTIN MD Ot 401.9 HYPERTENSION NOS 09/14/2017 ALISHA MARTIN MD Ot Z01.818 ENCOUNTER FOR OTHER PREPROCEDURAL EXAMIN 09/14/2017 ALISHA MARTIN MD Ot Z12.11 ENCOUNTER FOR SCREENING FOR MALIGNANT NE 09/21/2017 ALISHA MARTIN MD Ot 214.9 LIPOMA NOS 09/21/2017 ALISHA MARTIN MD Ot V72.63 PRE-PROCEDURAL LABORATORY EXAMINATION 09/21/2017 ALISAH MARTIN MD Ot V74.8 SCREEN-BACTERIAL DIS NEC Procedures There is no data. Results There is no data. Encounters ACCT No. Visit Date/Time Discharge Status Pt. Type Provider Facility Loc./Unit Complaint [id number] 09/21/2017 08:40:00 09/21/2017 11:35:00 DIS Outpatient ALISHA MARTIN MD [facility] ENDO SCREENING [id number] 09/14/2017 05:31:00 09/14/2017 09:02:00 DIS Outpatient ALISHA MARTIN MD [facility] PREOP COLONOSCOPY [id number] 02/22/2013 08:12:00 02/22/2013 14:30:00 DIS Outpatient ALISHA MARTIN MD [facility] SDC LIPOMA [id number] 02/20/2013 09:43:00 02/20/2013 23:59:59 CLS Outpatient MARIO JONES, ALISHA [facility] PREOP LIPOMA
== END 2017-09-21 11:35 | disposition home or self-care (01) ==
LOC: ENDO 08:40
PROVIDERS: ATTEND Surgery
DX: Z12.11 Encounter for screening for malignant neoplasm of colon (principal); K63.5 Polyp of colon; K57.30 Diverticulosis of large intestine without perforation or abscess without bleeding; I10 Essential (primary) hypertension; E78.00 Pure hypercholesterolemia, unspecified; N40.0 Benign prostatic hyperplasia without lower urinary tract symptoms; Z79.899 Other long term (current) drug therapy; Z79.82 Long term (current) use of aspirin; Z87.891 Personal history of nicotine dependence

== ENCOUNTER → 2022-02-26 | Outpatient (CLI) | payer MEDICARE, OTHER ==
[~2022-02-26] MED LIST changes: +AMLO-251 PO; -AMLO10TA2 PO; +ASCO100024 PO; -ASCO10006 PO; -LOSA100T28 PO; +LOSA100T57 PO; +SIMV20TA26 PO
== END ==
LOC: CARD 09:00
PROVIDERS: ATTEND Internal Medicine
DX: I51.7 Cardiomegaly (principal)
CPT/HCPCS: 93306